=== PATIENT | male | born 1985 | race Caucasian/White ===

== ENCOUNTER 2020-07-13 22:53 | Emergency (ER) | payer SELFPAY ==
[~2020-07-13] VITALS: Ht 185.4 cm; Wt 104.5 kg
--- NOTE | 2020-07-14 00:12 | PHYS DOC ---
General Adult EDM: Chief Complaint: DENTAL PROBLEM HPI: HPI: Patient is a 35 year old presents with a chief complaint of dental pain. Patient states he has had dental discomfort for 1 month. He states pain has progressively become worse over the last few days. Patient also has some left facial swelling. Patient's dental pain is left lower molar. He states he went to an urgent care but states they did not prescribe him any p rescriptions--antibiotic or for pain. States he has been taking ibuprofen with minimal relief. Patient requesting tooth extraction--as well as a possible crown. I told patient I am not a dentist. Advised patient I can prescribe him some antibiotics and something for pain. Patient is requesting a treatment that will immediately take his pain and swelling away. He tells me that he needs an antibiotic possibly penicillin. Advised patient he does not need IV antibiotics. He can be placed on oral antibiotics. Patient given his first dose of penicillin in the emergency department. Advised the patient I highly doubt 1 dose of antibiotics will immediately resolve his dental pain and swelling. Review of Systems: Review of Systems: Constitutional: Denies fever or chills. [] Eyes: Denies change in visual acuity. [] HENT: Positive dental pain Respiratory: Denies cough or shortness of breath. [] Cardiovascular: Denies chest pain or edema. [] GI: Denies abdominal pain, nausea, vomiting, bloody stools or diarrhea. [] : Denies dysuria. [] Musculoskeletal: Denies back pain or joint pain. [] Integument: Denies rash. [] Neurologic: Denies headache, focal weakness or sensory changes. [] Endocrine: Denies polyuria or polydipsia. [] Lymphatic: Denies swollen glands. [] Psychiatric: Denies depression or anxiety. [] Heart Score: Risk Factors: Risk Factors: DM, Current or recent (<one month) smoker, HTN, HLP, family hist ory of CAD, obesity. Risk Scores: Score 0 - 3: 2.5% MACE over next 6 weeks - Discharge Home Score 4 - 6: 20.3% MACE over next 6 weeks - Admit for Clinical Observation Score 7 - 10: 72.7% MACE over next 6 weeks - Early Invasive Strategies Physical Exam: PE: Constitutional: Well developed, well nourished, no acute distress, non-toxic appearance. [] HENT: Normocephalic, atraumatic, bilateral external ears normal, oropharynx moist, no oral exudates, nose normal. [Left lower posterior molar caries gum swelling left cheek swelling] Eyes: PERRLA, EOMI, conjunctiva normal, no discharge. [No pain with extraocular movement] Neck: Normal range of motion, no tenderness, supple, no stridor. [] Cardiovascular:Heart rate regular rhythm, no murmur [] Lungs & Thorax: Bilateral breath sounds clear to auscultation [] Abdomen: Bowel sounds normal, soft, no tenderness, no masses, no pulsatile masses. [] Skin: Warm, dry, no erythema, no rash. [] Back: No tenderness, no CVA tenderness. [] Extremities: No tenderness, no cyanosis, no clubbing, ROM intact, no edema. [] Neurologic: Alert and oriented X 3, normal motor function, normal sensory function, no focal deficits noted. [] Psychologic: Affect normal, judgement normal, mood normal. [] EKG: EKG: [] Radiology/Procedures: Radiology/Procedures: [] Course & Med Decision Making: Course & Med Decision Making Pertinent Labs and Imaging studies reviewed. (See chart for details) [] Patient treated with Ultram and penicillin. Patient prescribed prescription Ultram and penicillin. Patient advised to continue Tylenol and ibuprofen. Patient advised he can use hot and warm compresses. Patient advised that I do not extract teeth or place dental crowns. Patient advised to take prescription antibiotics and schedule an appointment with a dentist. Sarah Disclaimer: Sarah Disclaimer: This electronic medical record was generated, in whole or in part, using a voice recognition dictation system. Departure Departure Impression: Primary Impression: Pain, dental Disposition: 01 DC HOME SELF CARE/HOMELESS Condition: STABLE Patient Instructions: Dental Pain Scripts Tramadol Hcl (ULTRAM) 50 Mg Tablet 1 TAB PO PRN Q6HRS PRN for pain MDD 4 Tablet(s) for 7 Days, #28 TAB 0 Refills Prov: ELIZABETH SEGAL I DO 07/14/20 Penicillin V Potassium (PENICILLIN V POTASSIUM) 500 Mg Tablet 1 TAB PO QID, #40 TAB Prov: ELIZABETH SEGAL I DO 07/14/20 ELIZABETH SEGAL I DO Jul 14, 2020 00:12
[2020-07-14] MEDS ORDERED: TRAM-48 PO (00:20)
[2020-07-14] MEDS ORDERED: PENI500T PO (00:20)
[2020-07-14 00:23] VITALS: BP 154/98
[2020-07-14] MEDS ORDERED: traMADol 50 MG TABLET PO ONE (00:30)
[2020-07-14] MEDS ORDERED: PENICILLIN V K 250 MG TABLET. PO ONE (00:30)
== END 2020-07-14 00:37 | disposition home or self-care (01) ==
LOC: ER 22:53
DX: K08.89 Other specified disorders of teeth and supporting structures (principal); K60.0 Acute anal fissure
CPT/HCPCS: 99283